=== PATIENT | male | born 1990 | race Hispanic/Latino ===

== ENCOUNTER 2019-06-15 15:14 | Emergency (ER) | payer SELFPAY ==
[~2019-06-15 15:14] MED LIST: Iopamidol-370 76% 500 ML 1 ML ONE
[2019-06-15] MEDS ORDERED: Lidocaine Viscous Sol 2% 15 ml UD Cup ONE (16:21)
[2019-06-15] MEDS ORDERED: Mag-Al 1200 mg/1200 mg/30 ML UDCUP ONE (16:21)
[2019-06-15] MEDS ORDERED: Pantoprazole 40 MG VIAL ONE (16:21)
[2019-06-15] MEDS ORDERED: Ondansetron PF 4 MG/2 ML Vial ONE (16:21)
[2019-06-15 16:31] LABS: #Basophils 0.1 thou/uL (0.0-0.2); #Eosinphils 0.1 thou/uL (0.0-0.7); #Lymphocytes 2.8 thou/uL (1.20-3.40); #Neutrophils 5.7 thou/uL (1.40-6.50); %Basophils 0.7 % (0.0-1.0); %Eosinophils 1.4 % (0.0-10.0); %Lymphocytes 29.2 % (21.0-51.0); %Neutrophils 58.7 % (42.0-75.0); Hemoglobin 15.4 g/dL (14.0-18.0); Mean Corpuscular HGB CONC 34.2 g/dL (32.0-36.0); Mean Corpuscular Hemoglobin 30.6 pg (27.0-31.0); Mean Corpuscular Volume 89.5 fL (78.0-98.0); Mean Platelet Volume 9.2 fL (7.4-10.4); Platelet Count 214 thou/uL (130-400); RBC Distribution Width 12.2 % (11.5-14.5); Red Blood Cell (RBC) Count 5.02 mill/uL (4.70-6.10); White Blood Cell (WBC) Count 9.7 thou/uL (4.8-10.8)
[2019-06-15 16:49] LABS: ALT (SGPT) 14 U/L (8-55); AST (SGOT) 14 U/L (5-34); Albumin 4.6 g/dL (3.5-5.0); Alkaline Phosphatase 86 U/L (40-110); Anion Gap 12 mmol/L (10-20); BUN (Urea Nitrogen) 14 mg/dL (8.9-20.6); Bilirubin, Total 1.1 mg/dL (0.2-1.2); CK (CPK) 188 U/L (30-200); Calc. Creatinine Clearance 0 mL/min (70-130); Calcium 9.6 mg/dL (7.8-10.44); Carbon Dioxide 25 mmol/L (22-29); Chloride 107 mmol/L (98-107); Estimated GFR-MDRD 87; Globulin 3.3 g/dL (2.4-3.5); Glucose 100 mg/dL (70-105); Lipase 10 U/L (8-78); Potassium 3.7 mmol/L (3.5-5.1); Protein, Total 7.9 g/dL (6.0-8.3); Sodium 140 mmol/L (136-145)
--- NOTE | 2019-06-15 16:59 | RAD ---
XR Chest 1 View Portable History: Epigastric pain Comparison: None. Findings: Lungs are clear. No pneumothorax. No effusion. No acute osseous abnormality. Impression: No acute intrathoracic abnormality.
--- NOTE | 2019-06-15 17:57 | CT ---
CT Abdomen Pelvis W Con History: Epigastric pain. 30 pound weight loss. Comparison: None. Findings: Lung bases are clear. No pericardial effusion. The liver, gallbladder, spleen, pancreas are unremarkable. Adrenal glands are normal. No hydronephrosis. The aortoiliac contour is normal. No dilated loops of large or small bowel. The appendix is visualized and is normal. No retroperitoneal periaortic adenopathy. Celiac trunk and superior mesenteric arteries are patent. Impression: Normal examination of the abdomen and pelvis.
[2019-06-15 18:08] LABS: Bilirubin Negative (Negative); Blood, Urine Negative (Negative); Clarity Clear (Clear); Glucose, Urine (Dipstick) Normal (Negative); Leukocyte Negative Leu/uL (Negative); Nitrite Negative (Negative); Protein, Urine (Dipstick) Negative (Neg-Trace); Urobilinogen Normal mg/dL (Less than 2)
== END 2019-06-15 18:38 | disposition home or self-care (01) ==
LOC: ERS 15:14
DX: K21.9 Gastro-esophageal reflux disease without esophagitis (principal)
CPT/HCPCS: 36415; 71045; 74177; 80053; 81003; 82550; 83690; 84484; 85025; 93005; 96361; 96374; 96375; C9113; J2405; Q9967